=== PATIENT | male | born 1940 | race Caucasian/White ===

== ENCOUNTER → 2016-05-29 | Outpatient (CLI) | payer OTHER ==
[~2016-05-29] MED LIST: ADULT LOW DOSE81 MG PO; ASPIR 8181 M1 PO; CIPROFLOXACIN500 M1 PO; COLCHICINE 0.60.6 M1 PO; CRESTOR5 MG PO; DIOVAN40 MG PO; GLUCOSAMINE-CH480 M1 PO; KLOR-CON 1010 MEQ PO; LOSARTAN POTAS100 MG PO; PLAVIX 75 MG TA75 M1 PO; PROBENECID-COL1 EACH PO; VIIBRYD1 EACH PO; VIIBRYD40 MG PO; VOLTAREN100 GM TP
== END ==
LOC: ULTRA 00:54
DX: N50.82 Scrotal pain (principal); N50.819 Testicular pain, unspecified; N44.2 Benign cyst of testis

== ENCOUNTER → 2016-07-31 | Outpatient (CLI) | payer OTHER | LOC: CAT 09:16 | DX: R31.9 Hematuria, unspecified (principal); Z87.442 Personal history of urinary calculi ==